=== PATIENT | male | born 1960 | race Caucasian/White ===

== ENCOUNTER → 2016-05-16 | Outpatient (CLI) | payer OTHER ==
[2014-12-17 08:06] VITALS: BP 98/72
[~2016-05-16] MED LIST: LISI10TA2 PO; PRAV40TA2 PO
--- NOTE | 2016-05-16 11:57 | KCIC ---
PROCEDURE MRI cervical spine without contrast. HISTORY Chronic neck pain with radiculopathy. TECHNIQUE Sagittal T1, sagittal T2, sagittal STIR, axial T2, and axial T2 gradient sequences are provided. COMPARISON None. FINDINGS There is no malalignment. There is narrowing of the interspace at C5-C6. There is no worrisome marrow lesion. There is minimal endplate edema at C5-C6. There is no cord signal abnormality. Cervicomedullary junction is unremarkable. Degenerative findings by individual level are as follows: C2-C3: There is minimal buckling of ligamentum flavum. There is no canal or foraminal compromise. C3-C4: Disc osteophyte complex and uncinate process spurring are noted. There is mild facet hypertrophy which is greater on the left. Midline AP diameter of the thecal sac is narrowed to 8 millimeters. Foraminal narrowing bilaterally is moderate. C4-C5: Disc osteophyte complex and uncinate process spurring are noted. Facet hypertrophy is mild and greater on the left. Midline AP diameter of the thecal sac is minimally narrowed to 9 millimeters. There is mild to moderate left and mild right foraminal narrowing. C5-C6: There is a disc osteophyte complex and uncinate process spurring. There is buckling of ligamentum flavum. Midline AP diameter of the thecal sac is narrowed to 6-7 millimeters with mild cord flattening but no definite cord hyperintensity. Bilateral foraminal narrowing is high-grade. C6-C7: Disc osteophyte complex and uncinate process spurring are noted. Midline AP diameter of the thecal sac is 10 millimeters. There is mild left foraminal narrowing. C7-T1: There is no canal or foraminal compromise. IMPRESSION Degenerative changes in the cervical spine are most notable at C5-C6. Electronically signed by: Galen Greenfield MD (May 16, 2016 11:55:38)
== END | disposition home or self-care (01) ==
LOC: KCIC MRI 09:09
PROVIDERS: ATTEND Family Medicine
DX: M54.12 Radiculopathy, cervical region (principal)
CPT/HCPCS: 72141

== ENCOUNTER → 2016-07-15 | Outpatient (CLI) | payer OTHER ==
[2014-12-17 08:06] VITALS: BP 98/72
[~2016-07-15] MED LIST changes: +IOHEXOL 180 MG/ML 10 ML VIAL. ONE; +methylPREDNISolone ACETATE 40 MG/ML VIAL. ONE; +methylPREDNISolone ACETATE 80 MG/ML VIAL. ONE
--- NOTE | 2016-07-16 01:39 | PAIN ---
DATE OF SERVICE: 07/15/2016 INITIAL CONSULTATION FOR PAIN CLINIC CHIEF COMPLAINT: Neck and bilateral shoulder and upper extremity pain, worse on the left. HISTORY OF PRESENT ILLNESS: This is a 55-year-old male who presents with history of pain in the neck, base of the neck and left side shoulder with occasional radiation into the posterior shoulder and upper arm, but only infrequently. The patient reports it has been present for many years, worse over the past 1 year, increasing with activity with most daily activities, worse with repetitive motion in the upper extremities such as using his arms over his head, ____ doing some activities, driving the car with his left arm extended on the steering wheel exacerbates the pain as well. The patient reports it is a constant aching pain with occasional radiating pain in the left side in the shoulder and arm is noted. The patient did have MRI scan of the cervical spine dated 05/16/2016 showing degenerative changes of the cervical spine, most notable at C5-C6 with disk osteophyte complex and uncinate process spurring with mild cord flattening of the thecal sac narrowing to 6-7 mm at this level, also narrowing to 9 mm at the C4-C5 level with similar findings. Mild to moderate left and mild right foraminal narrowing at C4-C5 and bilateral foraminal narrowing high grade at C5-C6. The patient has tried chiropractic treatments in the past as well as exercise, continues to do this. Also, had some trigger point injections, but this is ____ other treatments on his low back in the past such as epidural injections. The patient reports no loss of motor function, does have some increased pain again with use of the left upper extremity repetitively or with driving. PAST MEDICAL HISTORY: Significant for arthritis, low back pain and hypercholesterolemia. PREVIOUS SURGERY: Include hernia repair bilateral inguinal, LASIK procedure and tonsillectomy as a child. CURRENT MEDICATION: Includes only pravastatin. ALLERGIES: The patient has no known drug allergies. FAMILY HISTORY: Significant for no major medical problems or conditions that he is aware of. SOCIAL HISTORY: The patient drinks 1-2 alcoholic drinks about 3 times a week and does not smoke. He is single and retired currently from [employer] and lives locally in [place], [place]. REVIEW OF SYSTEMS: The patient's review of systems is positive for those items mentioned in the history of present illness. All systems reviewed and otherwise negative. It is complete, full and well documented on the patient's chart. PHYSICAL EXAMINATION: VITAL SIGNS: The patient's blood pressure is 137/88, pulse is 61, respirations 18, temperature 98.6 degrees Fahrenheit, height is 5 feet 9 inches, weighs 175 pounds. GENERAL: The patient is awake, alert, oriented, appropriate, very pleasant demeanor. HEENT: Head shows normocephalic, atraumatic. Extraocular movements are intact and symmetrical. Oral cavity, mucous membranes moist and pink. Dentition is intact. NECK: Shows anterior throat supple without palpable lymphadenopathy noted. Swallow reflex is symmetrical. CHEST: Shows normal on inspection. Breath sounds are clear to auscultation bilaterally. HEART: Shows S1 and S2 clear. No murmurs auscultated. ABDOMEN: Soft, nontender, nondistended. No palpable organomegaly, no rebound or guarding demonstrated. BACK: The patient's back shows spine grossly midline. Normal appearing cervical lordotic curvature, thoracic kyphotic curvature, and lumbar lordotic curvature. No previous bruises, lesions, rashes or scars are noted. The patient's neck shows with inspection symmetrical paraspinous musculature in the cervical distribution, also with palpation shows some moderate tenderness, more on the left than the right in the inferior aspect of the cervical paraspinous muscles and the superior medial and the lateral trapezius on the left and in the superior medial trapezius on the right, very mildly tender on the right, but more moderately tender on the left without radiation once again. The patient shows good rotational motion of cervical spine, both laterally as well as extension and flexion with some minor tenderness reported with far left lateral rotation, but not with right lateral rotation greater than 45 degrees. The patient's upper extremities show deep tendon reflexes 2+ in the biceps and triceps tendons. Motor exam is strong with 5/5 bobj developer strength, biceps and triceps flexion and symmetrical and equal. Shoulder shrug is strong and intact with some mild pain reported in the left base of the neck and shoulder with resistance, but no loss of strength on resistance. This is true with abduction of the shoulder to 90 degrees, some mild tenderness in the base of the left neck, shoulder, but no loss of strength with resistance. Peripheral pulses are 2+ in radial distribution. No peripheral edema is noted. No clubbing, no cyanosis. Upper extremities are warm and dry to touch, equal in color and appearance IMPRESSION: 1. This is a 55-year-old male with many years history of pain, worse over the past 1 year, at base of the neck, left side greater than right with radiation to the left shoulder and upper extremity. 2. MRI scan of cervical spine as noted. 3. History of arthritis. PLAN: Options were discussed with the patient including conservative medical management, continued physical therapies and interventional techniques. He would like to pursue interventional techniques, as he has had good success with these in the past with other areas of the body. The patient would like to proceed with that today. We discussed a cervical epidural steroid injection using description as well as anatomical models to describe the procedure. Risks were then discussed including, but not limited to bleeding, infection, possibility of epidural hematoma, subsequent neurologic compromise, dural puncture, headaches, spinal cord and/or nerve damage, side effects of steroid medication and poor results regarding pain control. The patient understands and wishes to proceed. The patient will return to clinic in approximately 2 weeks for followup. He was counseled on return appointment, activity level and side effects to be aware of. DIAGNOSIS: Cervical radiculopathy with cervical degenerative disk disease. PROCEDURE: Cervical epidural steroid injection using a C-arm fluoroscopic guidance under sterile prep and drape using local anesthesia at the C6-C7 level, translaminar approach. Medications injected are 120 mg Depo-Medrol plus 5 mL of preservative-free normal saline and 2 mL of Isovue for contrast. CONDITION AT DISCHARGE: Stable. The patient tolerated procedure well, had no complications. KAROLINA PEREIRA MD DR: MJ/lebron JOB#: [id number] / [id number] Josh Hartman
== END | disposition home or self-care (01) ==
LOC: PNCL 07:32
PROVIDERS: ATTEND Anesthesiology
DX: M50.123 Cervical disc disorder at C6-C7 level with radiculopathy (principal); E78.00 Pure hypercholesterolemia, unspecified; M19.90 Unspecified osteoarthritis, unspecified site; I10 Essential (primary) hypertension; Z87.39 Personal history of other diseases of the musculoskeletal system and connective tissue; Z72.89 Other problems related to lifestyle
CPT/HCPCS: 62321; J1030; J1040

== ENCOUNTER → 2016-07-29 | Outpatient (CLI) | payer OTHER ==
[2014-12-17 08:06] VITALS: BP 98/72
[~2016-07-29] MED LIST changes: -IOHEXOL 180 MG/ML 10 ML VIAL. ONE; -methylPREDNISolone ACETATE 40 MG/ML VIAL. ONE; -methylPREDNISolone ACETATE 80 MG/ML VIAL. ONE
--- NOTE | 2016-07-29 11:06 | PAIN ---
DATE OF SERVICE: 07/29/2016 DIAGNOSES: 1. Cervical radiculopathy with cervical degenerative disk disease. 2. Lumbar radiculopathy with lumbar degenerative disk disease. HISTORY OF PRESENT ILLNESS: The patient is a 56-year-old male who returns for followup status post cervical epidural steroid injection x 1. The patient reports still doing much better after the last injection about 50% overall with his neck and left shoulder and upper extremity. The patient reports no new motor or sensory deficits, no new changes, but doing much better. He has been increasing his activity with much greater ease and comfort using his left upper extremity with much greater ease. He is sleeping well at night. He still does have an aching pain at the base of the neck and left shoulder. He also complains of some aching and dull pain in the low back radiating to the posterior lateral thighs occasionally as well but only with extended walking or standing greater than about 45 minutes. The patient reports no new motor or sensory deficits, has a pain score of 2 today out of 10. He reports he is doing much better. He is very pleased with his progress thus far. PHYSICAL EXAMINATION: VITAL SIGNS: The patient's blood pressure 149/92, pulse 56, respirations 20, temperature 98.0 degrees Fahrenheit. Height is 5 feet 9 inches, and weighs 174 pounds. GENERAL: The patient is awake, alert, oriented, appropriate, very pleasant demeanor. HEENT: Head shows normocephalic, atraumatic. Extraocular movements are intact and symmetrical. Oral cavity, mucous membranes are moist and pink. Dentition is intact. NECK: Shows anterior throat supple without palpable lymphadenopathy noted. Swallow reflex is symmetrical. CHEST: Shows normal on inspection. Breath sounds clear to auscultation bilaterally. HEART: Shows S1 and S2 clear. ABDOMEN: Soft, nontender, and nondistended. No palpable organomegaly is noted. No rebound or guarding demonstrated. BACK: Shows spine grossly in midline. Cervical paraspinous musculature shows some mild tenderness with palpation, but only diffusely in the low cervical paraspinous musculature, more on the left than the right, but without asymmetry, no radiation or trigger points. The patient has full rotational motion of cervical spine both laterally as well as extension and flexion without limitation on exam today. The patient's low back shows some moderate tenderness with palpation in the middle and lower distribution of paraspinous muscles in the lumbar distribution but appears roughly symmetrical, no evidence of atrophy, hypertrophy, shows good rotation and motion of the lumbar spine as well without difficulty, greater than 10 degrees right and left as well as extension greater than 10 degrees, forward flexion at 45 degrees. EXTREMITIES: Show upper extremity deep tendon reflexes at 2+ in the biceps and triceps tendons. Motor exam is strong with forest fire specialist supervisor strength rated at 5 out of 5 as is biceps and triceps flexion. Lower extremities show deep tendon reflexes at 2+ in the patellar, 1+ tendo calcaneus tendons. Motor exam is strong with 5 out of 5 dorsiflexion, extension, quadriceps, and hamstring flexion bilaterally. Options were discussed with the patient. The patient's old chart was reviewed as is his current medication regimen and updated. Current review of systems was updated today as well, and we will hold on any further injections at this time as the patient is doing quite a bit better. We would like to hold and wait, increase his activity and see how he does. Again, low back has been bothering him more now with some radiation into his lower extremities as noted. We may treat this in the future as well. The patient will increase his activity and see how he feels and follow up at this time on an as needed basis. KAROLINA PEREIRA MD DR: MJ/lebron JOB#: [id number] / [id number]
== END | disposition home or self-care (01) ==
LOC: PNCL 07:41
PROVIDERS: ATTEND Anesthesiology
DX: M50.10 Cervical disc disorder with radiculopathy, unspecified cervical region (principal); M51.16 Intervertebral disc disorders with radiculopathy, lumbar region
CPT/HCPCS: 99212